=== PATIENT | female | born 1985 | race African-American/Black ===

== ENCOUNTER 2021-02-23 12:20 | Emergency (ER) | payer MEDICAID ==
[~2021-02-23] VITALS: Ht 177.8 cm; Wt 102.0 kg
[2021-02-23 12:29] VITALS: BP 130/72
[2021-02-23 15:03] LABS: CHLORIDE 107 mEq/L (98-107)
[2021-02-23 15:15] LABS: BASOPHILS % 1.2 % (0.0-2.0); EOSINOPHILS % 1.6 % (0.0-5.0); HEMATOCRIT. 37.8 % (36.0-48.0); HEMOGLOBIN. 13.1 g/dL (12.0-16.0); LYMPHOCYTES % 28.5 % (20.0-50.0); MEAN CORPUSCULAR HEMOGLOBIN 31.9 pg (28.0-32.0); MEAN CORPUSCULAR VOLUME 91.8 fL (81.0-99.0); MEAN PLATELET VOLUME 8.2 fl (7.4-10.4); MONOCYTES % 6.8 % (2.0-8.0); NEUTROPHILS % 61.9 % (40.0-76.0); PLATELET 317 x1000/uL (130-400); RED BLOOD CELL COUNT 4.11 mill/uL (4.2-5.4); RED CELL DISTRIBUTION WIDTH 12.7 % (11.6-14.6)
[2021-02-23 15:37] LABS: B-HCG QUANTITATIVE 5732 mIU/mL (<3)
== END 2021-02-23 16:51 | disposition home or self-care (01) ==
LOC: ER 12:20
DX: O46.91 Antepartum hemorrhage, unspecified, first trimester (principal); Z3A.08 8 weeks gestation of pregnancy
CPT/HCPCS: 36415; 76801; 80053; 84702; 85025; 86850; 86900; 99284